=== PATIENT | male | born 1970 | race African-American/Black ===

== ENCOUNTER 2017-04-10 10:49 | Observation (INO) | payer SELFPAY ==
[2017-04-10] MEDS ORDERED: Aspirin TAB* 325 MG PO ONE (11:16)
[2017-04-10] MEDS: Nitroglycerin TAB 0.4 MG* 0.4 MG TAB SL ONE ×2 (11:40→11:48)
[2017-04-10 11:49] LABS: ABS Basophils 0.1 10^3/ul (0-0.2); ABS Eosinophils 0.1 10^3/ul (0-0.6); ABS Lymphocytes 1.7 10^3/ul (1.0-4.8); ABS Monocytes 0.4 10^3/ul (0-0.8); ABS Neutrophils 6.4 10^3/ul (1.5-7.7); ABS Nucleated RBC 0.01 10^3/ul; Eosinophil % 1.3 % (0-6); Hematocrit 45 % (42-52); Hemoglobin 14.8 g/dl (14.0-18.0); Lymphocyte % 19.2 % (25-47); Mean Corpuscular HGB Conc 33 g/dl (31-36); Mean Corpuscular Hemoglobin 27 pg (27-31); Mean Corpuscular Volume 82 fL (80-94); Mean Platelet Volume 8 um3 (7.4-10.4); Nucleated Red Blood Cells % 0.1; Platelet Count 252 10^3/ul (150-450); Red Blood Count 5.45 10^6/ul (4.0-5.4); Red Cell Distribution Width 15 % (10.5-15); White Blood Count 8.7 10^3/ul (3.5-10.8)
[2017-04-10] MEDS ORDERED: Ondansetron INJ* 2 MG/ML VIAL IV ONE (11:58)
[2017-04-10] MEDS ORDERED: Morphine INJ* 4 MG/ML 1 ML CARPUJECT IV ONE (11:58)
[2017-04-10 12:04] LABS: EGFR Non-African American 67.1 (>60)
--- NOTE | 2017-04-10 12:34 | RAD ---
Indication: Chest pain. Single frontal view of the chest performed at 1120 hours was reviewed. No prior studies available for comparison. No mediastinal shift is noted. Heart is of normal size and configuration. Lung benjamin appear clear. IMPRESSION: NO ACTIVE CARDIOPULMONARY DISEASE IS NOTED.
[2017-04-10] MEDS ORDERED: HYDROmorphone INJ* 2 MG/ML CARPUJECT SYRINGE IV SLOW PU PRN (12:43)
[2017-04-10] MEDS ORDERED: Aspirin Low Dose CHEW TAB* 81 MG PO ONE (12:43)
[2017-04-10] MEDS ORDERED: Ondansetron INJ* 2 MG/ML VIAL IV PRN (12:43)
[2017-04-10] MEDS ORDERED: NS 0.9% 1000 ML* 1,000 ML IV SCH (12:45)
[2017-04-10] MEDS ORDERED: Iohexol 350* (CONTRAST) 500 ML MDV IV ONE (13:07)
--- NOTE | 2017-04-10 13:43 | RAD ---
Indication: Chest pain. Contrast: Administered 100.0 ml of OMNIPAQUE 350 mg/ml CTA of the chest, abdomen and pelvis was performed. Coronal, sagittal and 3-D reconstructive images were obtained. Coronal and sagittal reconstructed images were obtained. Inferior thyroid lobes are unremarkable. The aorta demonstrates no aneurysmal dilatation or aortic dissection. Origins of the great vessels are unremarkable. There is a single origin of the left common carotid artery and innominate artery. There is no mediastinal or hilar adenopathy. The heart demonstrates no pericardial effusion. Trachea and major bronchi appear patent. The lung benjamin demonstrate no pleural fluid, nodules or masses. No pleural fluid is identified. No evidence of alveolar consolidation is noted. The visualized thoracic spine is unremarkable. The abdominal aorta demonstrates no evidence of dissection or aneurysmal dilatation. Celiac axis and renal arteries are unremarkable. Superior mesenteric artery is unremarkable. Common iliac and external iliac arteries are unremarkable. The liver is normal in size. There are no focal lesions or intrahepatic duct dilatation noted. Gallbladder demonstrates no calcified gallstones. Pancreas demonstrates no mass or pancreatic duct dilatation. Spleen is normal in size. No adrenal lesions are noted. The kidneys demonstrate symmetric nephrograms. No retroperitoneal lymphadenopathy. The small bowel demonstrates no abnormal dilatation. The appendix is visualized and is unremarkable. No free fluid is identified. Beginning bladder is unremarkable. IMPRESSION: No evidence of aortic dissection is noted. No evidence of aneurysmal dilatation is noted.
[2017-04-10] MEDS ORDERED: Ketorolac INJ* 30 MG/ML 1 ML VIAL IV PUSH ONE (14:07)
--- NOTE | 2017-04-10 14:52 | ED ---
Jersey Wong Abhishek, scribed for Chris Kent MD on 04/10/17 at 1118 . HPI Chest Pain - HPI Summary HPI Summary: This patient is a 46 year old M presenting to [facility] with a chief complaint of chest pain since this morning. Pain is described as left sided chest pain. Patient states "its like I fell or something but I didn't fall." The patient rates the pain 8/10 in severity. Symptoms aggravated by breathing. Symptoms alleviated by nothing. Patient reports TOBIAS and SOB. Patient denies coughing. Patient reports previously taking cholesterol medication but not currently. - History of Current Complaint Chief Complaint: EDChestPainROMI Time Seen by Provider: 04/10/17 10:59 Hx Obtained From: Patient Onset/Duration: Started Hours Ago - this morning Timing: Constant Initial Severity: Severe Current Severity: Severe Pain Intensity: 8 Pain Scale Used: 0-10 Numeric Chest Pain Location: Left Lateral Chest Pain Radiates: Yes Chest Pain Radiates To:: Back Aggravating Factor(s): Other: - breathing Alleviating Factor(s): Nothing Associated Signs and Symptoms: Positive: Chest Pain, Shortness of Breath. Negative: Cough - Allergy/Home Medications Allergies/Adverse Reactions: Allergies Allergy/AdvReac Type Severity Reaction Status Date / Time No Known Allergies Allergy Verified 04/10/17 11:39 Home Medications: Home Medications NK [No Home Medications Reported] 04/10/17 [History Confirmed 04/10/17] PMH/Surg Hx/FS Hx/Imm Hx Cardiovascular History: Denies: Hx Embolism GI History: Reports: Hx Gastroesophageal Reflux Disease Infectious Disease History: No Infectious Disease History: Denies: Traveled Outside the [place] in Last 30 Days - Family History Known Family History: Positive: Cardiac Disease - OR (mother) and CAD (Uncle) - Social History Occupation: Employed Full-time Alcohol Use: None Hx Substance Use: Yes Substance Use Type: Reports: Marijuana - intermittent Review of Systems All Other Systems Reviewed And Are Negative: Yes Physical Exam - Summary Physical Exam Summary: Constitutional: Well-developed, Well-nourished, Alert. (-) Distressed Skin: Warm, Dry HENT: Normocephalic; Atraumatic Eyes: Conjunctiva normal Neck: Musculoskeletal ROM normal neck. (-) JVD, (-) Stridor, (-) Tracheal deviation Cardio: Rhythm regular, rate normal, Heart sounds normal; Intact distal pulses; The pedal pulses are 2+ and symmetric. Radial pulses are 2+ and symmetric. (-) Murmur Pulmonary/Chest wall: Effort normal. (-) Respiratory distress, (-) Wheezes, (-) Rales Abd: Soft, (-) Tenderness, (-) Distension, (-) Guarding, (-) Rebound Musculoskeletal: Sitting up does reproduce some of his pain No palpable tenderness Lymph: (-) Cervical adenopathy Neuro: Alert, Oriented x3 Psych: Mood and affect Normal Triage Information Reviewed: Yes Vital Signs On Initial Exam: Initial Vitals Temp Pulse Resp BP Pulse Ox 97.8 F 83 19 130/83 100 04/10/17 10:50 04/10/17 10:50 04/10/17 10:50 04/10/17 10:50 04/10/17 10:50 Vital Signs Reviewed: Yes Diagnostics - Vital Signs Vital Signs Temp Pulse Resp BP Pulse Ox 04/10/17 10:50 97.8 F 83 19 130/83 100 - Laboratory Result Diagrams: 04/10/17 11:15 04/10/17 11:15 Lab Statement: Any lab studies that have been ordered have been reviewed, and results considered in the medical decision making process. - Radiology Chest X-ray Radiology Interpretation Completed By: ED Physician - Chest X-ray reveals no acute disease. - EKG 1106 EKG Rhythm: Sinus Rhythm EKG Interpretation: Negative STEMI, and mild ST elevation inferior Re-Evaluation - Re-Evaluation 1220 Re-Evaluation Time: 12:20 Change: Unchanged Comment: Patient reports pain as 8/10 and is willing to be admitted to the [facility]. Chest Pain Course/Dx - Course Course Of Treatment: This patient is a 46 year old M presenting to [facility] with a chief complaint of chest pain since this morning. Pain is described as left sided chest pain. Symptoms aggravated by breathing. Patient reports TOBIAS and SOB. Patient denies coughing. Chest X-ray reveals no acute disease. ReEval at 1220: pt reports pain as 8/10 unchanged from onset and is willing to be admitted to [facility]. Cardiac risk factors include untreated high cholesterol and family history of CAD. Patient will be admitted to [facility]. Dx will be unspecified chest pain. - Diagnoses Provider Diagnoses: Chest pain, unspecified - Provider Notifications Instructed by Provider To: Admit As Inpatient Discharge - Discharge Plan Condition: Stable Disposition: ADMITTED TO [facility] Referrals: No Primary Care Phys,NOPCP [Primary Care Provider] - The documentation as recorded by the Jersey mcdonald Abhishek accurately reflects the service I personally performed and the decisions made by me, Chris Kent MD.
--- NOTE | 2017-04-10 15:21 | HP ---
HISTORY AND PHYSICAL: DATE OF ADMISSION: 04/10/17 PRIMARY CARE PROVIDER: Unknown. ATTENDING PHYSICIAN WHILE IN THE HOSPITAL: Loi Montano MD * (report dictated by Trevor Mascorro NP). CHIEF COMPLAINT: Chest pain. HISTORY OF PRESENT ILLNESS: Mr. Flores is a 46-year-old male patient here with a history of hyperlipidemia and he has not been taking his medications. He does not really know who his primary is either. He comes into the ED today. He states that he woke up this morning. He said that around 5 o'clock this morning he started having chest tightness, pressure in his left side going into his back, he said it gets worse with movement positionally and also worse with taking a deep breath. He states that he cannot reproduce the pain by touching his chest. He denies having any recent illnesses or recent URI symptoms. He states he has been around sick people at work and at his home. Denied having any fevers or chills. He denied having any abdominal pain. Denies having any neck pain. He states that the pain really does not go anywhere with the exception of his left side and goes into his back, does not go down his arm. Denies having any associated diaphoresis, nausea. Denies having any vomiting with it. He does state that the discomfort was not getting any better. He went to work. He tried working, but anytime he moves, he was having more pain, so he decided to come in to the ED today to be evaluated. He was evaluated here in the ED, there was concern for the chest pain and we were asked to evaluate for admission. PAST MEDICAL HISTORY: Significant for hyperlipidemia. PAST SURGICAL HISTORY: He has had a hemorrhoidectomy. HOME MEDICATIONS: He is supposed to be taking cholesterol med, he does not know the name of it. ALLERGIES: To medications include no known drug allergies. FAMILY HISTORY: His mother had an MN at 61. Father was diabetic. 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 He is . He does have children. Surrogate decision maker is his . He does smoke marijuana 2 to 3 times a week. REVIEW OF SYSTEMS: There is no documented fever. He denied having any significant weight change. There was no double vision. He denies having any ear discharge. There was no rhinorrhea. Denies having any sore throat. No thyroid enlargement. There is chest pain per my HPI. There is no orthopnea. No nocturnal dyspnea. There is no abdominal pain. There is no nausea, no vomiting, no dysuria, no frequency, no seizure, no loss of consciousness, no pruritus and no skin ulcerations. Review of 14 systems completed, all others negative. PHYSICAL EXAMINATION GENERAL: At this time, Mr. Flores is a 46-year-old male patient, appears to be well nourished, well developed. He does appear to be in a fair amount of pain on exam. VITAL SIGNS: Blood pressure 115/71, pulse 77, respirations 18, O2 sat 98%, temperature 97.8. HEENT: Head is atraumatic. Eyes: EOMs are intact. Sclerae anicteric and not pale. Throat: Oral mucosa appears to be moist. No oropharyngeal erythema. NECK: Supple. LUNGS: Clear to auscultation bilaterally. No wheezes, rales, or rhonchi. HEART: Sounds S1 and S2. Regular rate and rhythm. No murmurs, rubs, or gallops. ABDOMEN: Soft, flat, nontender. Bowel sounds present. EXTREMITIES: Pulses are +2 throughout. No peripheral edema. Moving all 4 extremities with 5/5 strength. NEUROLOGIC: The patient is awake, alert, oriented x3. Tongue in midline. Autocad Technician equal. No gross focal deficits. SKIN: Grossly intact. LABORATORY DATA/DIAGNOSTIC STUDIES: WBC of 8.7, RBC of 5.45, hemoglobin 14.8, hematocrit 45, and platelet count of 252,000. D-dimer less than 200. Sodium 140, potassium 4.0, chloride 105, bicarbonate 30, BUN 14, creatinine 1.18, glucose 88, lactic 1.1, calcium 9.7, total bilirubin 0.5, AST 22, ALT 30, alkaline phosphatase 69. Troponin 0. CRP pending. ESR pending. EKG under my review does show what appears to be a normal sinus rhythm. He had no T-wave inversions. He does appear to have LVH. No ST-T elevations were noted. Chest x-ray shows no active cardiopulmonary disease under my review. I do not appreciate any infiltrates or signs of pulmonary edema. Old medical records reviewed. ASSESSMENT AND PLAN: Mr. Flores is a 46-year-old male patient coming into the ED with chest pain today. We were asked to evaluate. He will be admitted under observation status for; 1. Chest pain. At this point, I am going to get CT of the chest, abdomen, and pelvis to make sure there is not any dissection as he is having a significant amount of pain and he did describe it as a tearing pain going into the back. If the CTA is negative, then I would keep him in for pain control, OBV, cycle his troponins while he is here, try to get an echo, check the ESR and CRP as pericarditis is on the differential, possible costochondritis and possible pleurisy. If the CTA is negative and he is ruled out with the troponins, I probably will give him a dose of Toradol to see if this helps his pain. I would recommend giving him a dose of aspirin pending a negative CTA and we will continue to follow him. 2. History of hyperlipidemia. We will check lipid panel. We will try to get him back on his medications, see if can figure out what med he was taking, but he could follow this up with his primary. 3. DVT prophylaxis. I have ordered SCDs. 4. Code status. Full code. 5. Fluids, electrolytes, and nutrition. He can have a regular diet. TIME SPENT: Time spent on the admission was approximately 60 minutes, greater than half the time was spent [id number] with the patient obtaining my history and physical; the other half of the time was spent going over the plan of care with the patient and implementing plan of care. I did discuss the plan of care with my attending, Dr. Montano; who is in agreement. TREVOR MASCORRO, HANNAH [id number]/[facility] #: [id number] RAUL
[2017-04-10] MEDS: Acetaminophen TAB* 325 MG PO PRN (20:03)
[2017-04-11 05:29] LABS: ABS Basophils 0 10^3/ul (0-0.2); ABS Eosinophils 0.4 10^3/ul (0-0.6); ABS Lymphocytes 1.4 10^3/ul (1.0-4.8); ABS Monocytes 0.5 10^3/ul (0-0.8); ABS Neutrophils 4.1 10^3/ul (1.5-7.7); ABS Nucleated RBC 0.01 10^3/ul; Eosinophil % 5.7 % (0-6); Hematocrit 44 % (42-52); Hemoglobin 14.4 g/dl (14.0-18.0); Mean Corpuscular HGB Conc 33 g/dl (31-36); Mean Corpuscular Hemoglobin 27 pg (27-31); Mean Corpuscular Volume 82 fL (80-94); Mean Platelet Volume 8 um3 (7.4-10.4); Nucleated Red Blood Cells % 0.1; Platelet Count 233 10^3/ul (150-450); Red Blood Count 5.32 10^6/ul (4.0-5.4); Red Cell Distribution Width 15 % (10.5-15); White Blood Count 6.5 10^3/ul (3.5-10.8)
[2017-04-11 05:39] LABS: EGFR Non-African American 66.4 (>60)
[2017-04-11] MEDS: Acetaminophen TAB* 325 MG PO PRN (07:56)
[2017-04-11] MEDS ORDERED: Aspirin Low Dose CHEW TAB* 81 MG PO SCH (09:00)
--- NOTE | 2017-04-11 10:55 | PN ---
Progress Note - Progress Note Date of Service: 04/11/17 Note: Discharge Progress Note Primary diagnosis: pleuritic chest pain Secondary diagnoses: hyperlipidemia family history heart disease Procedures: none Consultations: none Pertinent lab/radiology findings: CTA chest/abdo/pelvis: no PE, no pneumonia, no aneurysm Laboratory Tests 04/10/17 04/10/17 04/10/17 11:15 11:15 13:55 ESR 10 D-Dimer, Quantitative < 200 Troponin I 0.00 04/10/17 04/10/17 04/10/17 16:37 18:15 19:19 Troponin I 0.00 0.00 Urine Opiates Screen Presumptive positive H Urine Cocaine Screen None detected U Cannabinoids Screen Presumptive positive H 04/11/17 04/11/17 05:16 05:16 Creatinine 1.19 H Hemoglobin A1c 5.7 H Triglycerides 111 Cholesterol 197 LDL Cholesterol 143 HDL Cholesterol 32.2 Tests pending upon discharge: none Physical Exam: Selected Entries 04/11/17 04:13 Temperature 36.5 C Pulse Rate 59 Respiratory 16 Rate Blood Pressure 115/67 (mmHg) O2 Sat by Pulse 99 Oximetry Alert no distress Chest: no chest wall tenderness, lungs clear Heart; RRR
[2017-04-11 11:01] VITALS: BP 128/76
[2017-04-11] MEDS ORDERED: Atorvastatin* 10 MG TAB PO SCH (17:00)
--- NOTE | 2017-04-12 02:13 | DS ---
DISCHARGE SUMMARY: DATE OF ADMISSION: 04/10/17 DATE OF DISCHARGE: 04/11/17 PRIMARY DIAGNOSIS: Pleuritic chest pain, suspect costochondritis. SECONDARY DIAGNOSES: 1. Hyperlipidemia. 2. Family history of heart disease. MEDICATIONS ON DISCHARGE: 1. Acetaminophen 650 mg p.o. q.4 hours p.r.n. pain. 2. Aspirin 81 mg p.o. q. day. 3. Lovastatin 20 mg p.o. q.h.s. HOSPITAL COURSE: A 46-year-old male admitted with atypical left-sided chest pain that was mainly ple uritic in nature. The patient underwent serial troponins which were 0 on 3 occasions. His electroly chuck were normal except a creatinine of 1.19, his cholesterol of 197 with an LDL of 143. Initial whit e count was normal. D- dimer was negative at less than 200. Toxicology showed positive urine opiate s and cannabinoids. EKG initially showed normal sinus rhythm, normal axis, LVH by voltage criteria, no ischemic ST or T wave changes. CT chest, abdomen, pelvis showed no pulmonary emboli, no pneumonia , no dissection of aorta. The patient's pain improved overnight and he felt ready for discharge. Th e patient has a primary care doctor in [place], but he is not sure of the name. He may seek primary c are in [place] with [facility]; the number was given to him. DISPOSITION: To home. DIET: Should be low fat. ACTIVITY: Will be as tolerated. As outpatient, will plan to have a stress test and echocardiogram arranged as this was not accomplish ed during the hospital stay because the patient was stable and the tests were not available on the . [id number]/[facility] #: [id number]
== END 2017-04-11 11:26 | disposition home or self-care (01) ==
LOC: ED 10:49 → MEDTELE 13:56
PROVIDERS: ADMIT Internal Medicine; ATTEND Internal Medicine
DX: R07.81 Pleurodynia (principal); R06.02 Shortness of breath; E78.5 Hyperlipidemia, unspecified; Z82.49 Family history of ischemic heart disease and other diseases of the circulatory system
CPT/HCPCS: 36415; 71010; 71275; 74174; 80048; 80053; 80061; 80307; 83036; 83605; 83690; 84484; 85025; 85379; 85652; 86140; 93005; 96374; 96375; 96376; 99283; A9270-GY; G0378; J1885; J2270; J2405; Q9967